=== PATIENT | female | born 1980 | race Caucasian/White ===

== ENCOUNTER 2017-08-17 08:39 | Emergency (ER) | payer OTHER, BC ==
[2017-08-17] MEDS: IBUPROFEN 600 MG TAB PO (10:07)
== END 2017-08-17 12:00 | disposition home or self-care (01) ==
LOC: FTE 08:39
DX: R05 Cough (principal); R50.9 Fever, unspecified; R51 Headache; R09.81 Nasal congestion; F17.210 Nicotine dependence, cigarettes, uncomplicated
CPT/HCPCS: 71045; 99283-25